=== PATIENT | female | born 2005 | race Caucasian/White ===

== ENCOUNTER 2024-04-06 21:51 | Day surgery (SDC) | payer OTHER ==
[2024-04-06 22:33] VITALS: BMI 24.7
[2024-04-06] MEDS ORDERED: hydrALAZINE 20 MG/ML VIAL SLOW IVP PRN (22:53)
[2024-04-06 22:58] LABS: Bilirubin Neg (Negative); Blood, Urine Negative (Negative); Glucose, Urine (Dipstick) Normal (Negative); Ketone, Urine Negative (Negative); Leukocyte 500 (Negative); Nitrite Negative (Negative); Protein, Urine (Dipstick) 15 mg/dl (Neg-Trace); Urobilinogen Normal mg/dL (Less than 2)
[2024-04-06 23:01] LABS: Clarity Hazy (Clear)
[2024-04-06 23:10] LABS: CAUTI Indications for Culture Dysuria,urgency,freq; RBC/HPF 0-3 HPF (0-3)
[2024-04-06 23:11] LABS: Bacteria/HPF 2+ HPF (None Seen); Mucous/LPF 1+ LPF (<2+); Transitional Epithelial 0-3 HPF (None Seen)
[2024-04-06 23:13] LABS: Urine Culture Reflex Yes Yes
[2024-04-06 23:16] LABS: Fetal Membranes Rupture No Membranes Rupture (No Rupture)
[2024-04-07] MEDS: Cephalexin 500 MG CAP PO SCH (00:59)
[2024-04-07] MEDS ORDERED: Cephalexin 500 MG CAP PO SCH (06:00)
== END 2024-04-07 01:03 | disposition home or self-care (01) ==
LOC: CSHLD/OP 21:51
PROVIDERS: ATTEND Family Medicine
DX: O47.1 False labor at or after 37 completed weeks of gestation (principal); Z03.71 Encounter for suspected problem with amniotic cavity and membrane ruled out; Z3A.37 37 weeks gestation of pregnancy; Z79.899 Other long term (current) drug therapy
CPT/HCPCS: 81001; 84112; 87086; 99283

== ENCOUNTER 2024-04-18 17:07 | Emergency (ER) | payer OTHER ==
[2024-04-18] MEDS ORDERED: Acetaminophen 500 MG TAB ONE (18:13)
[2024-04-18 18:38] LABS: Bilirubin Neg (Negative); Blood, Urine 250 (Negative); Clarity Cloudy (Clear); Glucose, Urine (Dipstick) Normal (Negative); Ketone, Urine 150 mg/dL (Negative); Leukocyte 500 (Negative); Nitrite Negative (Negative); Protein, Urine (Dipstick) 30 mg/dl (Neg-Trace); Urobilinogen Normal mg/dL (Less than 2)
[2024-04-18 18:39] LABS: #Basophils Less than 0.03 10x3/uL (0.0-0.2); #Eosinophils Less than 0.03 10x3/uL (0.0-0.5); #Monocytes 0.47 10x3/uL (0.0-1.1); #Neutrophils 8.05 10x3/uL (1.5-8.4); %Basophils 0.2 % (0.0-2.0); %Eosinophils 0.1 % (0.0-6.0); %Lymphocytes 10.5 % (18.0-47.0); %Monocytes 4.9 % (0.0-10.0); %Neutrophils 83.8 % (40.0-75.0); Hematocrit 24.7 % (34.9-44.5); Hemoglobin 8.2 g/dL (12.0-15.5); Mean Corpuscular HGB CONC 33.2 g/dL (32.0-36.0); Mean Corpuscular Hemoglobin 29.6 pg (27.0-33.0); Mean Corpuscular Volume 89.2 fL (81.6-98.3); Mean Platelet Volume 8.7 fL (7.4-10.4); Platelet Count 211 10x3/uL (150-450); RBC Distribution Width 12.8 % (11.5-14.5); Red Blood Cell (RBC) Count 2.77 10x6/uL (3.90-5.03); White Blood Cell (WBC) Count 9.61 10x3/uL (3.5-10.5)
[2024-04-18 18:46] LABS: CAUTI Indications for Culture Fever or rigors; RBC/HPF 21-50 HPF (0-3)
[2024-04-18 18:47] LABS: Bacteria/HPF 2+ HPF (None Seen); Squamous Epithelial 0-3 HPF (0-3); Transitional Epithelial 0-3 HPF (None Seen)
[2024-04-18 18:48] LABS: Mucous/LPF 3+ LPF (<2+)
[2024-04-18 18:53] LABS: Urine Culture Reflex Yes Yes
== END 2024-04-18 19:23 | disposition home or self-care (01) ==
LOC: CSHERS 17:07
DX: O91.22 Nonpurulent mastitis associated with the puerperium (principal); O86.20 Urinary tract infection following delivery, unspecified; N39.0 Urinary tract infection, site not specified
CPT/HCPCS: 81001; 85025; 87086; 99283